=== PATIENT | male | born 1995 | race African-American/Black ===

== ENCOUNTER 2020-10-16 10:36 | Inpatient (IN) ==
[2020-10-16] MEDS ORDERED: NS 0.9% 1000 ml BAG 1,000 ML IV ONE ×3 (10:54→13:24)
[2020-10-16 11:38] LABS: ABS Eosinophils 0.3 10^3/ul (0-0.6); ABS Lymphocytes 2.7 10^3/ul (1.0-4.8); ABS Monocytes 0.7 10^3/ul (0-0.8); ABS Neutrophils 5.1 10^3/ul (1.5-7.7); Eosinophil % 3.6 %; Hematocrit 43 % (42-52); Hemoglobin 14.8 g/dL (14.0-18.0); Lymphocyte % 30.6 %; Mean Corpuscular HGB Conc 35 g/dL (31-36); Mean Corpuscular Hemoglobin 31 pg (27-31); Mean Corpuscular Volume 90 fL (80-94); Platelet Count 175 10^3/uL (150-450); Red Blood Count 4.79 10^6 /uL (4.18-5.48); Red Cell Distribution Width 13 % (10-15); White Blood Count 8.8 10^3/uL (3.5-10.8)
[2020-10-16 12:23] LABS: Albumin 4.5 g/dL (3.2-5.2); Albumin/Globulin Ratio 1.7 (1-3); BUN/Creatinine Ratio 9.5 (8-20); Calcium 9.5 mg/dL (8.6-10.3); EGFR African American 133.6 (>60); EGFR Non-African American 110.5 (>60); Globulin 2.7 g/dL (2-4); Potassium 3.6 mmol/L (3.5-5.0); Total Bilirubin 0.7 mg/dL (0.2-1.0); Total Protein 7.2 g/dL (6.4-8.9)
[2020-10-16 12:36] LABS: Urine Appearance Cloudy; Urine Bilirubin Negative (Negative); Urine Blood 3+ (Negative); Urine Color Yellow; Urine Glucose Negative (Negative); Urine Ketones Negative (Negative); Urine Nitrite Negative (Negative); Urine Protein 2+(100 mg/dL) (Negative); Urine Specific Gravity 1.013 (1.010-1.030); Urine Urobilinogen Negative (Negative)
[2020-10-16 12:40] LABS: Urine Bacteria Absent (Absent); Urine Red Blood Cell 1+(3-5/hpf) (Absent); Urine Red Blood Cell Casts Present (Absent); Urine White Blood Cell Trace(0-5/hpf) (Absent)
[2020-10-16] MEDS: NS 0.9% 1000 ml BAG 1,000 ML IV SCH ×2 (15:48→21:34)
[2020-10-17] MEDS: NS 0.9% 1000 ml BAG 1,000 ML IV SCH ×2 (03:12→08:57)
[2020-10-17 06:05] LABS: ABS Eosinophils 0.4 10^3/ul (0-0.6); ABS Monocytes 0.8 10^3/ul (0-0.8); ABS Neutrophils 4.5 10^3/ul (1.5-7.7); Eosinophil % 4.7 %; Hematocrit 41 % (42-52); Hemoglobin 13.8 g/dL (14.0-18.0); Mean Corpuscular HGB Conc 34 g/dL (31-36); Mean Corpuscular Hemoglobin 31 pg (27-31); Mean Corpuscular Volume 91 fL (80-94); Mean Platelet Volume 10.5 fL (7.4-10.4); Nucleated Red Blood Cells % 0.1; Platelet Count 167 10^3/uL (150-450); Red Blood Count 4.53 10^6 /uL (4.18-5.48); Red Cell Distribution Width 13 % (10-15); White Blood Count 8.7 10^3/uL (3.5-10.8)
[2020-10-17 06:17] LABS: Albumin/Globulin Ratio 1.7 (1-3); Calcium 9.2 mg/dL (8.6-10.3); EGFR African American 152.3 (>60); EGFR Non-African American 125.9 (>60); Globulin 2.3 g/dL (2-4); Potassium 3.8 mmol/L (3.5-5.0); Total Bilirubin 0.4 mg/dL (0.2-1.0); Total Protein 6.3 g/dL (6.4-8.9)
[2020-10-17] MEDS: NORMOSOL-R pH 7.4 1000 mL BAG 1,000 ML IV SCH ×2 (14:07→20:46)
[2020-10-18] MEDS: NORMOSOL-R pH 7.4 1000 mL BAG 1,000 ML IV SCH ×3 (03:23→16:58)
[2020-10-18 05:25] LABS: ABS Eosinophils 0.4 10^3/ul (0-0.6); ABS Lymphocytes 2.6 10^3/ul (1.0-4.8); ABS Monocytes 0.8 10^3/ul (0-0.8); ABS Neutrophils 5.1 10^3/ul (1.5-7.7); Eosinophil % 4.2 %; Hematocrit 42 % (42-52); Hemoglobin 14.3 g/dL (14.0-18.0); Lymphocyte % 29.3 %; Mean Corpuscular HGB Conc 34 g/dL (31-36); Mean Corpuscular Hemoglobin 31 pg (27-31); Mean Corpuscular Volume 91 fL (80-94); Mean Platelet Volume 10.6 fL (7.4-10.4); Platelet Count 175 10^3/uL (150-450); Red Blood Count 4.66 10^6 /uL (4.18-5.48); Red Cell Distribution Width 13 % (10-15)
[2020-10-18 05:47] LABS: Albumin 4.3 g/dL (3.2-5.2); Albumin/Globulin Ratio 1.8 (1-3); BUN/Creatinine Ratio 10.4 (8-20); Calcium 9.6 mg/dL (8.6-10.3); EGFR African American 147.8 (>60); EGFR Non-African American 122.1 (>60); Globulin 2.4 g/dL (2-4); Potassium 3.9 mmol/L (3.5-5.0); Total Bilirubin 0.4 mg/dL (0.2-1.0); Total Protein 6.7 g/dL (6.4-8.9)
[2020-10-18 10:36] LABS: TSH Ultra Thyroid Stim Horm 2.83 mcIU/mL (0.34-5.60)
[2020-10-18 10:38] LABS: Free T4 0.97 ng/dL (0.61-1.12)
[2020-10-18 17:46] LABS: C Reactive Protein 15.54 mg/L (<8.01)
[2020-10-19] MEDS: Lactated Ringers 1000 ml BAG 1,000 ML IV SCH ×4 (01:01→23:51)
[2020-10-19 06:55] LABS: Albumin 4.3 g/dL (3.2-5.2); Albumin/Globulin Ratio 1.7 (1-3); BUN/Creatinine Ratio 15.9 (8-20); Calcium 9.8 mg/dL (8.6-10.3); EGFR African American 167.7 (>60); EGFR Non-African American 138.6 (>60); Globulin 2.5 g/dL (2-4); Potassium 4.1 mmol/L (3.5-5.0); Total Bilirubin 0.5 mg/dL (0.2-1.0); Total Protein 6.8 g/dL (6.4-8.9)
[2020-10-19 13:32] LABS: INR 1.06 (0.82-1.09)
[2020-10-19 14:10] LABS: Hepatitis B Surface Antigen Nonreactive (Nonreactive)
[2020-10-19 14:16] LABS: Hepatitis A Ab IgM Negative (Negative)
[2020-10-19 14:17] LABS: Hepatitis B Core IgM Nonreactive (Nonreactive)
[2020-10-19 14:28] LABS: Hepatitis C Antibody Negative (Negative)
[2020-10-20 07:20] LABS: Albumin 4.1 g/dL (3.2-5.2); Albumin/Globulin Ratio 1.6 (1-3); BUN/Creatinine Ratio 14.7 (8-20); Calcium 9.8 mg/dL (8.6-10.3); EGFR African American 170.6 (>60); Globulin 2.5 g/dL (2-4); Total Bilirubin 0.5 mg/dL (0.2-1.0); Total Protein 6.6 g/dL (6.4-8.9)
[2020-10-20] MEDS: Lactated Ringers 1000 ml BAG 1,000 ML IV SCH ×3 (07:37→20:25)
[2020-10-21] MEDS: Lactated Ringers 1000 ml BAG 1,000 ML IV SCH ×4 (03:12→23:48)
[2020-10-21 06:48] LABS: Albumin 3.9 g/dL (3.2-5.2); Albumin/Globulin Ratio 1.6 (1-3); BUN/Creatinine Ratio 13.2 (8-20); Calcium 9.6 mg/dL (8.6-10.3); Globulin 2.4 g/dL (2-4); Potassium 4.1 mmol/L (3.5-5.0); Total Bilirubin 0.3 mg/dL (0.2-1.0); Total Protein 6.3 g/dL (6.4-8.9)
[2020-10-21 17:54] LABS: JO-1 Antibody <0.2 U
[2020-10-22 04:44] LABS: Albumin/Globulin Ratio 1.7 (1-3); BUN/Creatinine Ratio 17.6 (8-20); Calcium 9.6 mg/dL (8.6-10.3); EGFR African American 154.7 (>60); EGFR Non-African American 127.9 (>60); Globulin 2.3 g/dL (2-4); Potassium 4.3 mmol/L (3.5-5.0); Total Bilirubin 0.4 mg/dL (0.2-1.0); Total Protein 6.3 g/dL (6.4-8.9)
[2020-10-22] MEDS: Lactated Ringers 1000 ml BAG 1,000 ML IV SCH (06:51)
[2020-10-22 11:10] VITALS: BP 124/65
[2020-10-22 12:20] LABS: Cyclic Citrullinated Peptide <15.6 U
== END 2020-10-22 12:38 | disposition home or self-care (01) | DRG 558 ==
LOC: ED 10:36 → SSU 14:31
PROVIDERS: ADMIT Student in an Organized Health Care Education/Training Program; ATTEND Hospitalist